=== PATIENT | female | born 1980 ===

== ENCOUNTER 2018-07-13 23:42 | Observation (INO) ==
--- NOTE | 2018-07-14 01:10 | ED ---
Review of Systems All other systems reviewed negative except as stated in HPI Medications and Allergies Allergies Allergy/AdvReac Type Severity Reaction Status Date / Time No Known Allergies Allergy Unverified 07/14/18 02:53 Home Medications Medication Instructions Recorded Confirmed Type sulfamethoxazole-trimethoprim 07/14/18 History [Bactrim DS] Exam Vital signs: Vital Signs Discharge Plan - Physicians Team ED Provider: Constance Swanson Primary Care Provider: NOT REQUIRED,
[2018-07-14] MEDS ORDERED: Acetaminophen 325 MG Tablet PO PRN (02:55)
[2018-07-14] MEDS ORDERED: Zolpidem Tartrate 5 MG Tablet PO PRN (02:55)
--- NOTE | 2018-07-14 03:22 | ED ---
History of Present Illness Primary Care Physician: NOT REQUIRED Chief Complaint: Pyelonephritis History of Present Illness: 38-year-old at 18 weeks and 6 days transferred from [facility] for pyelonephritis. Received 1 g of Rocephin. History of recurrent UTIs previously treated with Macrobid which she is completed and Bactrim both of which have been suboptimal. Received a call that patient has had an ultrasound status is reassuring renal ultrasound performed no signs of hydronephrosis no signs of nephrolithiasis. 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 Past medical history frequent UTIs Past surgical history delivery Allergies none Social history x3- Weeks Gestation:: 18 Para: 2 : 4 Review of Systems All other systems reviewed negative except as stated in HPI Medications and Allergies Active Medications: Active Medications Acetaminophen (Tylenol) 650 mg PO Q4H PRN PRN Reason: PAIN SCALE 1 TO 5 Ceftriaxone Sodium 1,000 mg/ (Sodium Chloride) 100 mls @ 200 mls/hr IV.SIG Q12HR RALPH Lactated Ringer's (Lr 1000 Ml Inj) 1,000 mls @ 100 mls/hr IV.CONT .Q10H RALPH Ondansetron HCl (Zofran Inj) 4 mg IV.PUSH Q6H PRN PRN Reason: NAUSEA OR VOMITING Vit/Calcium/Iron/Folic Ac (Stuartnatal Plus 3) 1 tab PO DAILY RALPH Sodium Chloride (Ns Flush) 2 ml IV.FLUSH BID RALPH Sodium Chloride (Ns Flush) 2 ml IV.FLUSH PRN PRN PRN Reason: FLUSH AFTER USING IV ACCESS Zolpidem Tartrate (Ambien) 5 mg PO HS PRN PRN Reason: SLEEP Allergies Allergy/AdvReac Type Severity Reaction Status Date / Time No Known Allergies Allergy Unverified 07/14/18 02:53 Home Medications Medication Instructions Recorded Confirmed Type sulfamethoxazole-trimethoprim 07/14/18 History [Bactrim DS] Exam Vital signs: Vital Signs 07/13/18 23:53 07/14/18 00:00 07/14/18 00:31 Temperature 98.4 F Pulse Rate 73 72 Respiratory Rate 16 Blood Pressure 98/40 L 106/55 L 07/14/18 02:42 Temperature Pulse Rate 67 Respiratory Rate 16 Blood Pressure 93/61 L Narrative: GENERAL: Well-nourished, well-developed patient. SKIN: Warm and dry. HEAD: Normocephalic and atraumatic. EYES: No scleral icterus. No injection or drainage. ENT: No nasal drainage noted. Mucous membranes pink. Airway patent. NECK: Supple, trachea midline. No JVD. CARDIOVASCULAR: Regular rate and rhythm without murmurs, gallops, or rubs. RESPIRATORY: Breath sounds equal bilaterally. No accessory muscle use. BREASTS: Bilateral exam showed no masses , no retractions, no nipple discharge. ABDOMEN/GI: Abdomen soft, non-tender, bowel sounds present, no rebound, no guarding , midline incision on the abdomen Gravid to 18 weeks size Fundal Height: 18 GENITOURINARY: Suprapubic tenderness/left CVA tenderness/pelvic exam deferred FHT's: Present EXTREMITIES: No cyanosis or edema. BACK: Nontender without obvious deformity. No CVA tenderness. NEUROLOGICAL: Awake and alert. Motor and sensory grossly within normal limits. Five out of 5 muscle strength in all muscle groups. Normal speech. Assessment and Plan - Diagnosis (1) Pyelonephritis affecting in second trimester Code(s): O23.02 - Infections of kidney in , second trimester Status: Acute (2) 18 weeks gestation of Code(s): Z3A.18 - 18 weeks gestation of Status: Acute - Plan is covering for Dr. Joseph Patient admitted Received 1 dose of Rocephin in the ER repeat 12 hours from the last dose Discharge Plan - Discharge Disposition Patient Disposition: ED Admit(ED Internal Use Only) - Physicians Team ED Provider: Constance Swanson Primary Care Provider: NOT REQUIRED,
[2018-07-14] MEDS: Prenatal Vit/Ca/Iron/Folic Acid Tablet PO SCH (09:26)
--- NOTE | 2018-07-14 17:15 | P.OBGPN ---
s-feeling much better today. No more back pain. No regular uterine contractions no vaginal bleeding no loss of fluid. No fevers or chills. No more dysuria. good bowel fx. o- vital signs are stable she has been afebrile here she is also been afebrile at the other hospital Well-developed well-nourished female resting comfortably in bed Chest is clear CV regular rate and rhythm without murmur Abdomen is soft and nontender fundus is nontender small amount of suprapubic tenderness. No CVA tenderness EXT no clubbing cyanosis or edema A/P 1. Intrauterine at 18 weeks 2. Pyelonephritis in the second trimester. We will increase her fluids to 150 cc/h continue her Rocephin and will get some labs at our facility today We will continue her IV antibiotics and change her over to p.o. perhaps tomorrow and send her home on P.o. antibiotic I stressed to the patient and her that they need to take antibiotics remainder of this she will need frequent urine cultures. She also needs to increase her p.o. fluid intake.
[2018-07-14 18:30] LABS: Baso % (Auto) 0.4 % (0.0-2.0); Eos # (Auto) 0.2 th/mm3 (0.0-0.4); Eos % (Auto) 2.3 % (0.0-4.0); Hematocrit 35.2 % (35.0-46.0); Hemoglobin 11.8 gm/dL (11.6-15.3); Lymph % (Auto) 21.7 % (9.0-44.0); Mean Corpuscular HGB Conc 33.5 % (32.0-36.0); Mean Corpuscular Hemoglobin 28.6 pg (27.0-34.0); Mean Corpuscular Volume 85.4 fL (80.0-100.0); Mean Platelet Volume 7.5 fL (7.0-11.0); Mono # (Auto) 0.6 th/mm3 (0.0-0.9); Neut # (Auto) 6.5 th/mm3 (1.8-7.7); Neut % (Auto) 69.6 % (16.0-70.0); Platelet Count 279 th/mm3 (150-450); Red Blood Count 4.12 mil/mm3 (4.00-5.30); Red Cell Distribution Width 13.2 % (11.6-17.2); White Blood Count 9.3 th/mm3 (4.0-11.0)
[2018-07-14 18:57] LABS: Anion Gap 9 meq/L (5-15); Blood Urea Nitrogen 6 mg/dL (7-18); Calcium 8.9 mg/dL (8.5-10.1); Carbon Dioxide 22.7 meq/L (21.0-32.0); Chloride 106 meq/L (98-107); Glomerular Filtration Rate Greater Than 89 mL/min (>89); Glucose,Random 115 mg/dL (74-106); Potassium 3.6 meq/L (3.5-5.1); Sodium 138 meq/L (136-145)
[2018-07-14 19:41] VITALS: RESP 18
[2018-07-15] MEDS: Prenatal Vit/Ca/Iron/Folic Acid Tablet PO SCH (09:34)
[2018-07-15 11:33] VITALS: BP 93/43; PULSE 73; TEMP 98.6
== END 2018-07-15 14:23 | disposition home or self-care (01) ==
LOC: H2E 23:42 → HOBED 23:42 → H2E 07-14 03:50
PROVIDERS: ADMIT Obstetrics & Gynecology; ATTEND Obstetrics & Gynecology
CPT/HCPCS: 80048; 85025; 96361; 96365; 96366; 99285; G0378; J0696; J7120